=== PATIENT | male | born 1965 | race African-American/Black ===

== ENCOUNTER → 2018-01-25 | Day surgery (SDC) | payer OTHER ==
[~2018-01-25] MED LIST: IV RINGERS,LACTATED 1000ML 1,000 ML IV SCH; LIDOCAINE 1% PF 2 ML VIAL. ID PRN; LIDOCAINE 1% PF 2 ML VIAL. ONE; LOSA1TAB25 PO; MIDAZOLAM HCL/PF 2 MG/2 ML VIAL. IV PRN; PROPOFOL 40 ML IV ONE; SIMV20TA3 PO; fentaNYL PF VIAL 100 MCG/2 ML VIAL IV PRN
[2018-01-25 09:43] VITALS: BP 115/78
--- NOTE | 2018-01-28 23:07 | PATHOLOGY ---
[facility] Accession Number: [id number] . 01 Material submitted: . ASCENDING COLON POLYP . 01 Clinical history: . Screening . 02 Diagnosis: "Ascending colon polyp", biopsy: - Tubular adenoma; no high grade dysplasia. . (CLW:vjm;01/28/2018) AGA/01/28/2018 . 02 Electronically signed: . Demetria Boyer MD, Pathologist NPI- [id number] . 01 Gross description: . Received in formalin labeled "Yordan Lamb, ascending colon polyp," is a single segment of sanchez soft tissue measuring 0.3 cm in maximum dimension. The specimen is entirely submitted in cassette A1. (TSD; 01/25/2018) TOB/TOB . 02 Pathologist provided ICD-10: D12.2 . 02 CPT . 330350 Specimen Comment: A courtesy copy of this report has been sent to Specimen Comment: [phone], . Specimen Comment: Report sent to / DR REGAN Performed at: 01 [facility] [address], [place] [id number] MD Efren Culver MD Phone: [phone] Performed at: 02 [facility] [address] [place], [place] [id number] MD Can Wyatt MD Phone: [phone]
== END | disposition home or self-care (01) ==
LOC: ENDOS 08:18
PROVIDERS: ATTEND Internal Medicine Gastroenterology
DX: D12.2 Benign neoplasm of ascending colon (principal); K64.0 First degree hemorrhoids; K57.30 Diverticulosis of large intestine without perforation or abscess without bleeding; K21.9 Gastro-esophageal reflux disease without esophagitis; I10 Essential (primary) hypertension; E78.5 Hyperlipidemia, unspecified; Z82.49 Family history of ischemic heart disease and other diseases of the circulatory system; Z86.010 Personal history of colon polyps
CPT/HCPCS: 45385; 88305; J2704; 45380